=== PATIENT | female | born 1970 | race African-American/Black ===

== ENCOUNTER 2022-05-13 13:30 | Emergency (ER) | payer OTHER ==
[2022-05-13 14:07] LABS: #Basophils 0.1 10x3/uL (0.0-0.2); #Eosinphils 0.2 10x3/uL (0.0-0.5); #Monocytes 0.8 10x3/uL (0.0-1.1); #Neutrophils 4.7 10x3/uL (1.5-8.4); %Basophils 1.3 % (0.0-2.0); %Eosinophils 2.8 % (0.0-6.0); %Lymphocytes 25.9 % (18.0-47.0); %Neutrophils 59.9 % (40.0-75.0); Hemoglobin 13.6 g/dL (12.0-15.5); Mean Corpuscular HGB CONC 33.3 g/dL (32.0-36.0); Mean Corpuscular Hemoglobin 27.6 pg (27.0-33.0); Mean Corpuscular Volume 82.8 fl (81.6-98.3); Platelet Count 306 10x3/uL (150-450); RBC Distribution Width 14.2 % (11.5-14.5); Red Blood Cell (RBC) Count 4.93 10x6/uL (3.90-5.03); White Blood Cell (WBC) Count 7.9 10x3/uL (3.5-10.5)
[2022-05-13 14:14] LABS: BHCG - Serum Negative (NEGATIVE); Pregs Control Background? CLEAR/WHITE (CLR/WHITE); Pregs Control Bar Appear? YES (CONTROL BAR)
[2022-05-13] MEDS ORDERED: Aspirin Chewable 81 MG TAB ONE (14:19)
[2022-05-13] MEDS ORDERED: Lidocaine Viscous Sol 2% 15 ml UD Cup ONE (14:19)
[2022-05-13] MEDS ORDERED: Mag-Al Plus 1200 MG/1200 MG/120 MG/30 ML UDCUP ONE (14:19)
[2022-05-13 14:24] LABS: ALT (SGPT) 13 U/L (8-55); AST (SGOT) 22 U/L (5-34); Albumin 3.6 g/dL (3.5-5.0); Alkaline Phosphatase 92 U/L (40-110); Anion Gap 12 mmol/L (10-20); BUN (Urea Nitrogen) 19 mg/dL (7.0-18.7); Bilirubin, Total 0.3 mg/dL (0.2-1.2); Calc. Creatinine Clearance 0 mL/min (70-130); Carbon Dioxide 24 mmol/L (22-29); Chloride 106 mmol/L (98-107); Estimated GFR 64; Globulin 2.6 g/dL (2.4-3.5); Glucose 95 mg/dL (70-105); Potassium 5.2 mmol/L (3.5-5.1); Protein, Total 6.2 g/dL (6.0-8.3); Sodium 137 mmol/L (136-145)
== END 2022-05-13 15:30 | disposition home or self-care (01) ==
LOC: CSHERS 13:30
DX: R07.9 Chest pain, unspecified (principal); K44.9 Diaphragmatic hernia without obstruction or gangrene
CPT/HCPCS: 71045; 80053; 83880; 84484; 84703; 85025; 93005

== ENCOUNTER 2022-06-04 08:39 | Day surgery (SDC) | payer OTHER ==
[2022-06-03 13:54] VITALS: BMI 47.5
[2022-06-04] MEDS ORDERED: Fentanyl 100 MCG/2 ML VIAL ONE (12:47)
[2022-06-04] MEDS ORDERED: PROPOFOL 40 ML ONE (12:47)
[2022-06-04] MEDS ORDERED: Lidocaine 1% PF 5 ML VIAL ONE (12:49)
== END 2022-06-04 14:40 | disposition home or self-care (01) ==
LOC: CSHSDC 08:39
PROVIDERS: ATTEND Internal Medicine Gastroenterology
PROC: 0DJ08ZZ Inspection of Upper Intestinal Tract, Via Natural or Artificial Opening Endoscopic (ICD-10-PCS; principal; 2022-06-04)
DX: K21.9 Gastro-esophageal reflux disease without esophagitis (principal); K44.9 Diaphragmatic hernia without obstruction or gangrene; K29.70 Gastritis, unspecified, without bleeding; J45.909 Unspecified asthma, uncomplicated; E66.9 Obesity, unspecified; Z79.899 Other long term (current) drug therapy; Z91.040 Latex allergy status; Z68.42 Body mass index [BMI] 45.0-49.9, adult
CPT/HCPCS: J2704; J3010

== ENCOUNTER 2023-11-25 07:46 | Emergency (ER) | payer OTHER | END 2023-11-25 09:20 | disposition home or self-care (01) | LOC: CSHERS 07:46 | DX: J20.9 Acute bronchitis, unspecified (principal) | CPT/HCPCS: 71045; 93005 ==